=== PATIENT | female | born 1975 | race Asian ===

== ENCOUNTER 2017-06-04 10:53 | Outpatient (CLI) | payer OTHER ==
--- NOTE | 2017-06-04 16:10 | Ultrasound Report ---
RIGHT BREAST ULTRASOUND: 06/04/2017 CLINICAL INDICATION: Palpable abnormality 7 o'clock right breast. COMPARISON: 04/10/2016. TECHNIQUE: Real-time scanning was performed with counter sales representative static images obtained. FINDINGS: Ultrasound of the palpable abnormality in the right lower outer quadrant was performed, as well as ultrasound of the previously noted fibroadenomas. At the 7 o'clock position, 4 cm from the nipple, there is a hypoechoic mildly lobulated 3.2 x 2.7 x 1.2 cm nodule, with minimal associated vascularity and posterior acoustic enhancement. The imaging characteristics are compatible with a fibroadenoma. Other, similar structures are again seen, measuring 1.8 cm at the 9 o'clock position, 1.0 cm at the 10 o'clock position, and 2.0 cm at the 11 o'clock position. No sonographically suspicious findings are identified. 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 The findings were discussed with the patient, and due to the new palpability of the nodule at the 7 o'clock position, she does desire biopsy of this lesion. Ultrasound-guided core needle biopsy is scheduled for 06/16/2017 at 7:45 a.m. BIRADS CATEGORY 3-PROBABLE BENIGN FINDINGS. Results and recommendations discussed with the patient at the time of the examination, and called to Alessia Schneider PA-C, covering for Dr. Sánchez on 2016. Biopsy is scheduled for 06/16/2017 at 7:45 a.m. JOB #: [id number] EXT JOB #: [id number] CARMELO
--- NOTE | 2017-06-04 16:52 | Mammography Report ---
DIGITAL DIAGNOSTIC BILATERAL MAMMOGRAM: 06/04/2017 CLINICAL INDICATION: A 41-year-old with history of multiple fibroadenomas, new palpable lesion in the right lower outer quadrant. COMPARISON: 04/10/2016. TECHNIQUE: Bilateral CC and MLO views, right true lateral, bilateral laterally exaggerated craniocaud al views. FINDINGS: The breasts again demonstrate heterogeneously dense fibroglandular parenchyma bilaterally. Multiple biopsy markers in the left breast are stable. Circumscribed nodules are again seen in the r ight upper outer and lower outer quadrants. No suspicious clustered microcalcifications, or regions o f architectural distortion are identified. Please also refer to right breast ultrasound of the same day. IMPRESSION: PROBABLE BENIGN FINDINGS, WITH MULTIPLE LIKELY FIBROADENOMAS PRESENT IN THE RIGHT BREAST . GIVEN THE NEWLY PALPABLE LESION IN THE RIGHT LOWER OUTER QUADRANT, THE PATIENT DESIRES BIOPSY FOR P ATHOLOGIC CONFIRMATION. BIRADS CATEGORY 3-PROBABLE BENIGN FINDINGS. The results and recommendations discussed with the patient at the time of the examination, and called to Alessia Schneider PA-C, covering for Dr. Sánchez on 06/04/2017. Ultrasound-guided core needle biopsy o f the palpable abnormality at 7 o'clock in the right breast is scheduled for 06/16/2017 at 7:45 a.m. STANDARD QUALIFYING STATEMENTS 1. This examination was reviewed with the aid of Computer-Aided Detection (CAD). 2. A negative or benign imaging report should not delay biopsy if clinically suspicious findings are present. Consider surgical consultation if warranted. More than 5% of cancers are not identified by i maging. 3. Dense breasts may obscure an underlying neoplasm. JOB #: [id number] EXT JOB #:[id number]
== END 2017-06-04 10:54 | disposition home or self-care (01) ==
LOC: DI 10:53
PROVIDERS: ATTEND Family Medicine
DX: N63.20 Unspecified lump in the left breast, unspecified quadrant (principal); N63.13 Unspecified lump in the right breast, lower outer quadrant; N63.11 Unspecified lump in the right breast, upper outer quadrant
CPT/HCPCS: 76642; 77066

== ENCOUNTER 2017-06-16 07:16 | Outpatient (CLI) | payer OTHER ==
[2017-06-16] MEDS ORDERED: BUFFERED LIDOCAINE 10 ML SYRINGE IU ONE (09:00)
[2017-06-16] MEDS ORDERED: BUPIVACAINE 0.25%-EPI 1:200000 PF 30 ML VIAL SUBQ ONE (09:00)
[2017-06-16 09:46] VITALS: BP 123/64
--- NOTE | 2017-06-17 16:42 | Ultrasound Report ---
PROCEDURE: Ultrasound guided core needle biopsy, right breast nodule 06/16/2017 CLINICAL INDICATION: A 3 cm nodule right lower outer quadrant. Informed consent was obtained. Using standard aseptic technique, both 1% buffered lidocaine and Sensorcaine were injected into the right breast for local anesthesia. A small rlyee was made in the skin with a #11 blade. A 12- gauge Celero vacuum assistive device was used to obtain 4 specimens. A Celero marker was placed into the biopsy cavity under ultrasound guidance. The patient was taken to a separate mammography machine and a 2-view digital mammogram was performed, documenting the marker and the lesion and no significant postbiopsy hematoma. The wound was dressed and ice applied. The patient was observed for approximately 15 minutes, then was discharged from diagnostic imaging in good condition. Following instructions on wound care and obtaining biopsy results. The tissue was sent for histologic analysis. IMPRESSION: Ultrasound-guided biopsy of the right breast. An addendum will be made to this report when pathology is reviewed to establish concordance. TD: 06/16/2017 10:48 CARMELO
== END 2017-06-16 07:17 | disposition home or self-care (01) ==
LOC: DI 07:16
PROVIDERS: ATTEND Family Medicine
DX: D24.1 Benign neoplasm of right breast (principal)
CPT/HCPCS: 19083

== ENCOUNTER 2018-01-17 14:12 | Outpatient (CLI) | payer OTHER ==
--- NOTE | 2018-01-17 16:37 | Ultrasound Report ---
Procedure Date: 01/17/2018 Accession Number: [id number] / [id number] Procedure: US - Breast Unilateral Limited CPT Code: FULL RESULT: EXAM: Breast Unilateral Limited DATE: 01/17/2018 3:22 PM CLINICAL HISTORY: RT BREAST LUMP TECHNIQUE: Grayscale and limited color Doppler images of the area of interest were obtained. COMPARISON: Diagnostic mammogram obtained the same day. FINDINGS: Corresponding to the 2 oval circumscribed high density masses at 7:00 3 cm from the nipple and 10:00 4 cm from the nipple are macrolobulated uniformly hypoechoic masses measuring 4.2 x 3.3 x 1.6 cm and 2.0 x 1.5 x 1.6 cm. IMPRESSION: Sonographically the masses corresponding to the mammographic findings are suggestive of fibroadenoma. The patient states she is planning to see a breast surgeon for elective removal of her known fibroadenomas. Biopsy versus 6 month follow-up are recommended if these are not removed at the time of surgery. BI-RADS 3
--- NOTE | 2018-01-17 16:59 | Ultrasound Report ---
Procedure Date: 01/17/2018 Accession Number: [id number] / [id number] Procedure: US - Breast Unilateral Limited CPT Code: FULL RESULT: EXAM: Breast Unilateral Limited DATE: 01/17/2018 3:22 PM CLINICAL HISTORY: LT BREAST LUMP TECHNIQUE: Grayscale ultrasound and limited color Doppler of the region of interest are obtained. COMPARISON: Mammograms obtained the same day. Please note: A portion of the images corresponding to the left breast ultrasound examination are stored under the accession number [id number] which corresponds to the right breast ultrasound exam performed at the same time. FINDINGS: Corresponding to a oval hyperdense mass well-circumscribed on mammogram a uniformly hypoechoic oval masses measuring 1.9 x 1.0 x 1.9 cm at 4:00 with some internal vascularity by color Doppler is identified. Corresponding to a 9:00 mammographic hyperdense well-circumscribed mass on mammogram is a sonographically lobulated well-circumscribed uniformly hypoechoic 1.7 x 1.2 x 2.3 cm mass. IMPRESSION: Sonographically benign-appearing masses correspond to a biopsy-proven fibroadenoma as well as a mammographically and sonographically benign-appearing mass suspected to represent an additional fibroadenoma. The patient relates she has planned to see a breast surgeon for elective removal of fibroadenomas. If these are not removed, surgically, biopsy of the new lesion or six-month mammographic follow-up are recommended. BI-RADS 3
--- NOTE | 2018-01-17 17:17 | Mammography Report ---
Procedure Date: 01/17/2018 Accession Number: [id number] / [id number] Procedure: RAMYA - Diagnostic Dig Bilat CPT Code: FULL RESULT: EXAM: Diagnostic Dig Bilat DATE: 01/17/2018 2:51 PM CLINICAL HISTORY: 41-year-old female with personal history of thyroid cancer status post radiation. TECHNIQUE: Right and left ML, MLO, CC and exaggerated CC COMPARISON: 06/16/2017, 06/04/2017, 04/10/2016 FINDINGS: The breasts demonstrate heterogeneously dense fibroglandular parenchyma bilaterally. The right breast contains multiple benign-appearing hyperdense oval well-circumscribed masses. These correspond to the area palpated by the patient at 7:00 and 10:00. The left breast contains multiple benign-appearing hyperdense oval well-circumscribed masses. The well-circumscribed hyperdense oval mass at 4:00 corresponds to the previously placed biopsy marker, biopsy proven fibroadenoma. A second well-circumscribed oval mass at 9:00 is hyperdense and benign appearing. IMPRESSION: Probable benign findings RECOMMENDATION: The patient is planning to see a breast surgeon for surgical removal of her multiple breast masses. If the masses which have not been biopsied are not removed surgically, six-month follow-up mammogram is recommended with the option of biopsy if patient preferred. BIRADS CATEGORY 3: Probable benign findings STANDARD QUALIFYING STATEMENTS: 1. This examination was reviewed with the aid of Computer-Aided Detection (CAD). 2. A negative or benign imaging report should not delay biopsy if clinically suspicious findings are present. Consider surgical consultation if warrented. More than 5% of cancers are not identified by imaging. 3. Dense breasts may obscure an underlying neoplasm.
== END 2018-01-17 14:13 | disposition home or self-care (01) ==
LOC: DI 14:12
PROVIDERS: ATTEND Family Medicine
DX: N63.11 Unspecified lump in the right breast, upper outer quadrant (principal); N63.23 Unspecified lump in the left breast, lower outer quadrant; N63.13 Unspecified lump in the right breast, lower outer quadrant; D24.2 Benign neoplasm of left breast
CPT/HCPCS: 76642; 77066

== ENCOUNTER 2018-02-14 09:06 | Day surgery (SDC) | payer OTHER ==
[~2018-02-14 09:06] MED LIST: ceFAZolin 2 GM/50 ML 2 GM/50 ML BAG IV ONE
[2018-02-14] MEDS ORDERED: LACTATED RINGERS 1,000 ML IV ONE ×2 (09:42→14:35)
[2018-02-14] MEDS ORDERED: BUPIVACAINE 0.5%-EPI 1:200000 PF 30 ML VIAL ONE (11:46)
[2018-02-14] MEDS ORDERED: BUPIVACAINE 0.5%-EPI 1:200000 PF 30 ML VIAL SUBQ ONE (12:56)
[2018-02-14] MEDS ORDERED: LIDOCAINE-MPF 2% 5 ML VIAL IM ONE (13:28)
[2018-02-14] MEDS ORDERED: fentaNYL 100 MCG/2 ML VIAL IVP ONE (13:28)
[2018-02-14] MEDS ORDERED: KETOROLAC 30 MG/ML VIAL IVP ONE (13:28)
[2018-02-14] MEDS ORDERED: ceFAZolin 2 GM/50 ML 2 GM/50 ML BAG IV ONE (13:28)
[2018-02-14] MEDS ORDERED: MIDAZOLAM 2 MG/2 ML VIAL IVP ONE (13:28)
[2018-02-14] MEDS ORDERED: PROPOFOL 200 MG/20 ML VIAL IVP ONE (13:28)
[2018-02-14] MEDS ORDERED: ONDANSETRON 4 MG/2 ML VIAL IVP ONE (13:28)
[2018-02-14] MEDS ORDERED: ACETAMINOPHEN 1,000 MG/100 ML 100 ML IV ONE (14:16)
[2018-02-14] MEDS: HYDROmorphone 1 MG/ML CARPUJECT ONE ×4 (14:24→14:58)
[2018-02-14] MEDS ORDERED: HYDROcod/ACETAM 5/325 MG TABLET ONE (15:23)
[2018-02-14 15:32] VITALS: BP 117/74
--- NOTE | 2018-02-14 19:21 | OPERATIVE REPORT ---
DATE OF SERVICE: 02/14/2018 Physician: Bunny Mack MD PREOPERATIVE DIAGNOSIS: Breast mass x4. POSTOPERATIVE DIAGNOSIS: Breast mass x4. PROCEDURE PERFORMED: Breast excisional biopsy x4. ANESTHESIA: General, by Dr. Vega. SURGEON: Bunny Mack MD. ESTIMATED BLOOD LOSS: 10 mL. COMPLICATIONS: None. FINDINGS: Two masses were present in each breast. On the right side was a 1.5 cm mass in the upper outer quadrant with gross characteristics consistent with a fibroadenoma i.e., ryan-white rubbery, fi rm, with well-circumscribed margins. In the lower outer quadrant of the right breast was a 4 cm diam eter similar configured lesion. On the left side in the upper outer quadrant was at 2 cm similar con figured lesion, and in the upper inner quadrant was a similar sized and configured lesion. INDICATIONS: Patient is a 42-year-old woman, with a history of 2 prior breast lumpectomies for fibro adenomas and 2 prior FNA aspirate diagnoses of fibroadenomas in existing masses, who presents with 4 lesions, 2 in each breast, all palpable, all slowly enlarging and increasingly uncomfortable, that sh e would like removed. Evaluation with imaging, including mammography and ultrasonography, confirmed that all of these lesions were consistent with fibroadenomas. She was advised to undergo excisional biopsy of all 4 lesions. She was not interested in alternatives such as observation or bilateral mas tectomies. TECHNIQUE: After informed consent, patient was taken to the operating room where she was placed unde r general anesthesia by Dr. Vega. Preoperative preparation included application of sequential calf compression boots, administration of 2 grams of cefazolin intravenously within an hour prior to the incision. Both breasts were prepared with ChloraPrep solution and draped in the usual sterile fashio n. Beginning with the left side, a curvilinear incision was made along the lateral edge of the nippl e areola complex overlying the mass in the upper outer quadrant. Hemostasis achieved with electrocau latrell. Subcutaneous flaps were raised sharply, whereupon the mass was identified, picked up with a La jaleely clamp, and excised grossly completely with electrocautery and curved Metzenbaum scissors. The ti ssue was sent for pathology. Hemostasis achieved with electrocautery. Attention was turned to the s econd lesion in the right breast located in the upper inner quadrant where a similar type of periareo lar incision was made approximately 2 cm in length, and in a similar fashion, this lesion was excised and sent for pathology. After hemostasis had been assured in both sites, wound closure was accomplished with a single layer o f continuous 5-0 nylon sutures. This was done at patient's request. She declined subcuticular skin closures and has allergy to Dermabond, Steri-Strips, and this was felt the most appropriate closure g iven those limitations. Attention was turned to the right side, where a lower midline incision was made in the 6-o'clock posi tion overlying the mass. This was carried down through subcutaneous tissues. Hemostasis achieved wi th electrocautery. Flaps were raised circumferentially, and the 4 cm mass was grossly completely exc ised and sent for pathologic evaluation. The mass in the upper outer quadrant was excised by making a transverse incision overlying the mass carried down in the subcutaneous tissues. The mass was iden tified, picked up with a Lino clamp, and excised in a similar fashion and sent for pathologic evalua tion. After hemostasis was assured, wound closure was accomplished in a single layer of continuous 5-0 nylo n sutures in the upper outer quadrant lesion and in 2 layers within the lower midline, using continuo us 3-0 Vicryl reapproximating the subcutaneous tissues and continuous 5-0 nylon for the skin. Tegade rm and Telfa dressings were applied, anesthesia terminated, and patient transferred to the recovery r oom in satisfactory condition. Sponge, needle counts were correct x2, and no drains were used. TD: 02/14/2018 14:40
== END 2018-02-14 09:07 | disposition home or self-care (01) ==
LOC: SDS 09:06
PROVIDERS: ATTEND Internal Medicine Gastroenterology
PROC: 0HBV0ZX Excision of Bilateral Breast, Open Approach, Diagnostic (ICD-10-PCS; principal; 2018-02-14 10:15)
DX: D24.2 Benign neoplasm of left breast (principal); D24.1 Benign neoplasm of right breast; Z85.850 Personal history of malignant neoplasm of thyroid
CPT/HCPCS: 19120; A9270; J0131; J0690; J1170; J7120

== ENCOUNTER 2021-08-25 15:32 | Outpatient (CLI) | payer OTHER ==
[2021-08-25 16:10] LABS: THYROID STIMULATING HORMONE 0.43 uIU/mL (0.34-5.60)
== END 2021-08-25 15:33 | disposition home or self-care (01) ==
LOC: LAB 15:32
PROVIDERS: ATTEND Family Medicine
DX: E89.0 Postprocedural hypothyroidism (principal)
CPT/HCPCS: 36415; 84443

== ENCOUNTER 2021-11-04 13:12 | Outpatient (CLI) | payer OTHER ==
[2021-11-04 13:19] LABS: BASOPHILS # (AUTO) 0.1 10^3/uL (0.0-0.1); BASOPHILS % (AUTO) 0.7 %; EOSINOPHILS % (AUTO) 0.3 %; HCT - HEMATOCRIT 26.9 % (37.0-47.0); HGB - HEMOGLOBIN 7.5 g/dL (12.0-16.0); LYMPHOCYTES # (AUTO) 2.1 10^3/uL (1.5-3.5); LYMPHOCYTES % (AUTO) 23.2 %; MEAN CORPUSCULAR HEMOGLOBIN 16.7 pg (27.0-31.0); MEAN CORPUSCULAR HGB CONC 27.9 g/dL (32.0-36.0); MEAN CORPUSCULAR VOLUME 59.9 fL (81.0-99.0); MEAN PLATELET VOLUME 8.7 fL (7.9-10.8); MONOCYTES # (AUTO) 0.5 10^3/uL (0.0-1.0); MONOCYTES % (AUTO) 5.5 %; NEUTROPHILS # (AUTO) 6.3 10^3/uL (1.5-6.6); PLT - PLATELET COUNT 529 10^3/uL (130-450); RED BLOOD COUNT 4.49 10^6/uL (4.20-5.40); RED CELL DISTRIBUTION WIDTH 21.7 % (12.0-15.0); WHITE BLOOD COUNT 8.9 x10^3/uL (4.8-10.8)
[2021-11-04 13:26] LABS: SLIDE REVIEW? Indicated
[2021-11-04 13:57] LABS: RBC MORPHOLOGY (MULTIPLE) 4+ ANISOCYTOSIS (NORMAL)
[2021-11-04 13:59] LABS: % IRON SATURATION 2 % (20-50); IRON 12 ug/dL (28-170); TOTAL IRON BINDING CAPACITY 601 ug/dL (250-450); TRANSFERRIN 429 mg/dL (192-382)
== END 2021-11-04 23:59 | disposition home or self-care (01) ==
LOC: LAB 13:12
PROVIDERS: ATTEND Nurse Practitioner
DX: L65.9 Nonscarring hair loss, unspecified (principal)
CPT/HCPCS: 36415; 82306; 82607; 83540; 84466; 85025

== ENCOUNTER 2023-12-27 15:22 | Emergency (ER) | payer OTHER ==
[2023-12-27 15:58] VITALS: BP 137/58; O2SAT 100
--- NOTE | 2023-12-27 16:21 | ED Physician Documentation ---
PD HPI UPPER EXT INJURY - Stated complaint Stated Complaint: RT WRIST INJ - Chief complaint Chief Complaint: Ext Problem - History obtained from History obtained from: Patient - History of Present Illness Location: Right, Wrist Type of injury: Twist (was throwing away heavy bag of trash. 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 - Present Medications Home Medications: Ambulatory Orders Medication Instructions Recorded Confirmed Levothyroxine [Synthroid] 100 mcg PO DAILY 02/14/18 02/14/18 Diclofenac Sodium 1% Gel [Voltaren 2 gm TOP QID #50 gm 12/27/23 Gel] Meloxicam [Mobic] 7.5 mg PO BID 10 Days #20 tablet 12/27/23 - Allergies Allergies/Adverse Reactions: Allergies Allergy/AdvReac Type Severity Reaction Status Date / Time adhesive Allergy Unknown Verified 12/27/23 15:49 povidone-iodine Allergy Unknown Verified 12/27/23 15:49 [From Betagen (povidone-iodine)] dermabond Allergy Unknown Uncoded 12/27/23 15:49 steristrips Allergy Unknown Uncoded 12/27/23 15:49 - Social History Does the pt smoke?: No Smoking Status: Never smoker - Immunizations Immunizations are current?: Yes PD ED PE NORMAL - Vitals Vital signs reviewed: Yes - General General: Alert and oriented X 3, No acute distress, Well developed/nourished - Derm Derm: Normal color, Warm and dry - Extremities Extremities: Other (right wrist with tenderness dorsal ulnar side. Not tender in snuffbox. ) - Neuro Neuro: Alert and oriented X 3, No motor deficit, No sensory deficit Results - Vitals Vitals: Oxygen O2 Source Room air PD Medical Decision Making - ED course Complexity details: reviewed results (xray without fractures), considered differential, d/w patient Departure - Departure Disposition: Home, Self Care Clinical Impression: Right wrist sprain Qualifiers: Encounter type: initial encounter Qualified Code(s): S63.501A - Unspecified sprain of right wrist, initial encounter Condition: Stable Record reviewed to determine appropriate education?: Yes Instructions: ED Sprain Wrist Follow-Up: [facility]opedic [facility] [Provider Group] Prescriptions: Meloxicam [Mobic] 7.5 mg PO BID 10 Days #20 tablet Diclofenac Sodium 1% Gel [Voltaren Gel] 2 gm TOP QID #50 gm Comments: Your x-ray appears normal without any signs of fractures or bony abnormality. It does sound like a sprain of your wrist. The splint that you have is actually looks pretty good and I would continue with that when up and around during the day to reduce motion and activity. Gentle range of motion of the wrist several times a day mildly. Add anti-inflammatories to this. You can do topical diclofenac 3-4 times daily to the area that is painful/injured. You could do oral anti-inflammatories as well for the initial 7 to 10 days. At the Tylenol/acetaminophen every 4-6 hours if needed for worse pain. Follow-up with the orthopedic clinic if not improved over the next week or so. Call for an appointment. Forms: PCP List Discharge Date/Time: 12/27/23 17:33
--- NOTE | 2023-12-27 16:21 | XRAY Report ---
PROCEDURE: Wrist 3+V RT INDICATIONS: right wrist pain TECHNIQUE: 3 views of the wrist were acquired. COMPARISON: None. FINDINGS: Bones: No acute fractures or dislocations. No suspicious bony lesions. Remote ulnar styloid fractur e. Soft tissues: No suspicious soft tissue calcifications or masses. IMPRESSION: No acute bony abnormality. If there is anatomic snuff box tenderness, consider wrist immobilization a nd repeat radiographs in 10-14 days or cross-sectional imaging now. If pain persists with conservativ e management, consider repeat radiographs in 10-14 days or cross-sectional imaging. Remote ulnar styloid fracture. Reviewed by: Preet Luong MD on 12/27/2023 4:19 PM PDT Approved by: Preet Luong MD on 12/27/2023 4:19 PM PDT Station ID: [id number]
== END 2023-12-27 17:33 | disposition home or self-care (01) ==
LOC: ED 15:22
DX: S63.501A Unspecified sprain of right wrist, initial encounter (principal); X50.1XXA Overexertion from prolonged static or awkward postures, initial encounter; E03.9 Hypothyroidism, unspecified
CPT/HCPCS: 99283